=== PATIENT | male | born 1990 | race African-American/Black ===

== ENCOUNTER 2018-10-13 09:14 | Emergency (ER) | payer SELFPAY ==
[2018-10-13 09:21] VITALS: BP 118/69; PULSE 59; TEMP 97.8; BMI 20.7
--- NOTE | 2018-10-13 09:42 | PDOC ---
History of Present Illness - General Chief Complaint: Penile Drainage Stated Complaint: URINARY PROBLEM Time Seen by Provider: 10/13/18 09:38 History Source: Patient Exam Limitations: No Limitations Past History - Travel Traveled outside of the country in the last 30 days: No Close contact w/someone who was outside of country & ill: No - Past Medical History Allergies/Adverse Reactions: Allergies Allergy/AdvReac Type Severity Reaction Status Date / Time No Known Allergies Allergy Verified 10/13/18 09:21 Home Medications: Ambulatory Orders Cephalexin Monohydrate [Keflex -] 500 mg PO BID #14 capsule 10/13/18 COPD: No - Suicide/Smoking/Psychosocial Hx Smoking History: Current every day smoker Information on smoking cessation initiated: No Review of Systems - Review of Systems Able to Perform ROS?: Yes Comments:: 10/13/18 12:15 CONSTITUTIONAL: Absent: fever, chills, diaphoresis, generalized weakness, malaise, loss of appetite GENITOURINARY: Present: penile discharge, dysuria Absent: frequency, urgency, hesitancy, hematuria, flank pain, genital pain MUSCULOSKELETAL: Absent: myalgia, arthralgia, joint swelling SKIN: Absent: rash, itching, pallor NEUROLOGIC: Absent: headache, focal weakness or paresthesias, dizziness, unsteady gait, seizure, mental status changes, bladder or bowel incontinence PSYCHIATRIC: Absent: anxiety, depression, suicidal or homicidal ideation, hallucinations. Is the patient limited Ecuadorean proficient: No *Physical Exam - Vital Signs Last Vital Signs Temp Pulse Resp BP Pulse Ox 97.8 F 59 L 18 118/69 99 10/13/18 09:19 10/13/18 09:19 10/13/18 09:19 10/13/18 09:19 10/13/18 09:19 - Physical Exam Comments: 10/13/18 12:16 GENERAL: The patient is awake, alert, and fully oriented, in no acute distress. HEAD: Normal with no signs of trauma. EYES: Pupils equal, round and reactive to light, extraocular movements intact, sclera anicteric, conjunctiva clear. EXTREMITIES: Normal range of motion, no edema. NEUROLOGICAL: Normal speech, normal gait. PSYCH: Normal mood, normal affect. SKIN: Warm, Dry, normal turgor, no rashes or lesions noted. Medical Decision Making - Medical Decision Making 10/13/18 12:17 The patient is a 28 y/o M with no PMH who presents to the ER today with one morning of dysuria and penile discharge. The patient admits to recent unprotected sex with a new partner. Denies fevers, chills, abdominal pain, n/v/ d. A/P: Penile discharge Pt defers penile exam UA, UC, chlamydia/GC testing ordered Treated prophylactically in the ED Pt asked how much longer until he could leave. I explained we were waiting on urine results to r/o UTI. PT states he would wait, however, pt is not able to be found in the ER at this time. Tried calling patient's phone and left a message. Pt appears to have a UTI. No pharmacy listed. Pt elopes from the ER *DC/Admit/Observation/Transfer Diagnosis at time of Disposition: Penile discharge - Discharge Dispostion Disposition: ELOPED - Prescriptions Prescriptions: Cephalexin Monohydrate [Keflex -] 500 mg PO BID #14 capsule - Referrals - Patient Instructions - Post Discharge Activity
[2018-10-13] MEDS ORDERED: AZITHROMYCIN 500 MG TABLET PO ONE (09:43)
[2018-10-13] MEDS ORDERED: AZITHROMYCIN 250 MG TABLET ONE ×2 (09:49→10:03)
[2018-10-13] MEDS ORDERED: cefTRIAXone SODIUM 1 GM VIAL ONE (09:49)
[2018-10-13] MEDS ORDERED: LIDOCAINE HCL/PF 1% SDV 5ML VIAL ONE (09:55)
[2018-10-13 11:44] LABS: EPI CELLS 0.3 /HPF (0-5/HPF); HYALINE CASTS 16 /lpf (0-8); PH,URINE 6.5 (5.0-8.0); URINE APPEARANCE CLOUDY; URINE BACTERIA 21.3 /hpf (NEGATIVE); URINE BILIRUBIN NEGATIVE (NEGATIVE); URINE COLOR YELLOW; URINE GLUCOSE (UA) NEGATIVE (NEGATIVE); URINE KETONE TRACE (NEGATIVE); URINE LEUK ESTERASE 3+ (NEGATIVE); URINE NITRITE NEGATIVE (NEGATIVE); URINE PROTEIN 1+ (NEGATIVE); URINE RBC 12 /hpf (0-4); URINE WBC 654 /hpf (0-5)
== END 2018-10-13 12:41 | disposition home or self-care (01) ==
LOC: JER 09:14
DX: R36.9 Urethral discharge, unspecified (principal)
CPT/HCPCS: 36415; 81003; 87086; 87491; 87591; 99282-25